=== PATIENT | female | born 1975 | race Caucasian/White ===

== ENCOUNTER 2019-05-01 06:54 | Day surgery (SDC) | payer OTHER, BC ==
[2019-05-01 07:23] VITALS: O2SAT 95
[2019-05-01] MEDS ORDERED: NA CHLORIDE 0.9% 1,000 ML ONE (07:50)
[2019-05-01] MEDS ORDERED: PROPOFOL 200 MG/20 ML VIAL IV ONE ×2 (08:31→08:32)
[2019-05-01 09:28] VITALS: TEMP 97.9
[2019-05-01 09:30] VITALS: BP 114/48
[2019-05-01] MEDS ORDERED: HEPARIN 500 UNIT/5 ML SYR IV ONE (09:31)
== END 2019-05-01 09:33 | disposition home or self-care (01) ==
LOC: OR 06:54
PROVIDERS: ATTEND Internal Medicine Gastroenterology
PROC: 0DB78ZX Excision of Stomach, Pylorus, Via Natural or Artificial Opening Endoscopic, Diagnostic (ICD-10-PCS; 2019-05-01)
PROC: 0DBL8ZX Excision of Transverse Colon, Via Natural or Artificial Opening Endoscopic, Diagnostic (ICD-10-PCS; principal; 2019-05-01 09:15)
PROC: 0DBL8ZX Excision of Transverse Colon, Via Natural or Artificial Opening Endoscopic, Diagnostic (ICD-10-PCS; 2019-05-01 09:15)
DX: D12.3 Benign neoplasm of transverse colon (principal); K64.8 Other hemorrhoids; K64.4 Residual hemorrhoidal skin tags; K29.50 Unspecified chronic gastritis without bleeding; K21.0 Gastro-esophageal reflux disease with esophagitis; K44.9 Diaphragmatic hernia without obstruction or gangrene; Z80.0 Family history of malignant neoplasm of digestive organs; Z98.0 Intestinal bypass and anastomosis status; Z79.84 Long term (current) use of oral hypoglycemic drugs; Z79.899 Other long term (current) drug therapy
CPT/HCPCS: 82962; 88305; 88312; J1642; J2704; J7030

== ENCOUNTER 2022-03-31 06:34 | Day surgery (SDC) | payer BC ==
[2022-03-31] MEDS ORDERED: NA CHLORIDE 0.9% 1,000 ML ONE (06:46)
[2022-03-31] MEDS ORDERED: propofoL 200 MG/20 ML VIAL IV ONE ×3 (08:02→08:19)
[2022-03-31] MEDS ORDERED: LIDOCAINE 1% MPF 5 ML VIAL ONE (08:02)
--- NOTE | 2022-03-31 08:45 | ENDO RPT ---
[address], [address] COLONOSCOPY PROCEDURE REPORT EXAM DATE: 03/31/2022 PATIENT NAME: Chase Mohamud MR #: [id number] BIRTHDATE: 1975 ATTENDING: Anand Crandall Dr STATUS: outpatient FILTER CHANGING TECHNICIAN: Keke Dodd and Elen Villeda RN INDICATIONS: The patient is a 46 yr old Female here for a colonoscopy due to hematochezia and personal history of colon polyps PROCEDURE PERFORMED: Colonoscopy with snare polypectomy MEDICATIONS: Per Anesthesia. ESTIMATED BLOOD LOSS: None CONSENT: The patient understands the risks and benefits of the procedure and understands that these risks include, but are not limited to: sedation, allergic reaction, infection, perforation and/or bleeding. Alternative means of evaluation and treatment include, among others: physical exam, x-rays, and/or surgical intervention. The patient elects to proceed with this endoscopic procedure. DESCRIPTION OF PROCEDURE: During intra-op preparation period all mechanical medical equipment was checked for proper function. Hand hygiene and appropriate measures for infection prevention was taken. Procedure, possible complications, alternatives including, but not limited to possibility of bleeding, perforation, tear, infection, sepsis, need for surgery, need for blood transfusion, were explained to the patient. After the risks, benefits and alternatives of the procedure were thoroughly explained, Informed consent was verified, confirmed and timeout was successfully executed by the treatment team. The patient was placed in the left lateral position. A digital rectal exam was performed and revealed external hemorrhoids and A digital rectal exam was performed and revealed several skin tags. After appropriate level of anesthesia, the scope was passed. The EC-[id number] ([id number]) endoscope was introduced through the anus and advanced to the terminal ileum which was intubated for a short distance. The quality of the prep was good. The instrument was then slowly withdrawn as the colon was fully examined. Scope withdrawal time was 12 minutes. COLON FINDINGS: A polypoid shaped pedunculated polyp measuring 1.8 cm in size was found in the ascending colon. A polypectomy was performed using snare cautery. The resection was complete, the polyp tissue was completely retrieved and sent to histology. The wound at the site was closed by placing hemoclips. One (1) placement was made. There was minimal blood loss from maneuver subsiding by end of procedure. One (1) placement was made. There was minimal blood loss from maneuver subsiding by end of procedure. A smooth sessile polyp measuring 6 mm in size was found in the sigmoid colon. A polypectomy was performed using snare cautery. The resection was complete, the polyp tissue was completely retrieved and sent to histology. Moderate sized internal and external hemorrhoids were found. Retroflexed views revealed medium hemorrhoids. The scope was then completely withdrawn from the patient and the procedure terminated. ADVERSE EVENTS: There were no complications. IMPRESSIONS: 1. 1.8 cm pedunculated polyp in the ascending colon; polypectomy was performed using snare cautery; the wound at the site was closed by placing hemoclip X1 2. 6 mm sessile polyp in the sigmoid colon; polypectomy was performed using snare cautery 3. Moderate sized internal and external hemorrhoids 4. Intubation to terminal ileum 5. Personal history of colon polyps RECOMMENDATIONS: 1. await biopsy results 2. avoid NSAIDS for 2 weeks RECALL: Return in 1 year(s) for Colonoscopy. Anand Crandall Dr eSigned: Anand Crandall Dr 03/31/2022 8:44 AM cc: Amelia Brooek CPT CODES: ICD9 CODES: 1. 455.5 External hemorrhoids with other complication 2. 455.9 Residual hemorrhoidal skin tags 3. 211.3 Benign neoplasm of colon PATIENT NAME: Chase Mohamud MR#: [id number]
[2022-03-31 09:35] VITALS: TEMP 98.1; O2SAT 100
[2022-03-31 09:40] VITALS: BP 129/62
== END 2022-03-31 09:12 | disposition home or self-care (01) ==
LOC: OR 06:34
PROVIDERS: ATTEND Internal Medicine Gastroenterology
PROC: 0DBN8ZX Excision of Sigmoid Colon, Via Natural or Artificial Opening Endoscopic, Diagnostic (ICD-10-PCS; 2022-03-31)
PROC: 0DBK8ZX Excision of Ascending Colon, Via Natural or Artificial Opening Endoscopic, Diagnostic (ICD-10-PCS; principal; 2022-03-31 07:30)
DX: D12.2 Benign neoplasm of ascending colon (principal); D12.5 Benign neoplasm of sigmoid colon; Z86.010 Personal history of colon polyps; Z80.0 Family history of malignant neoplasm of digestive organs; F41.9 Anxiety disorder, unspecified; E11.9 Type 2 diabetes mellitus without complications; E78.5 Hyperlipidemia, unspecified; I10 Essential (primary) hypertension; K64.4 Residual hemorrhoidal skin tags; Z20.822 Contact with and (suspected) exposure to COVID-19
CPT/HCPCS: 82947; 88305; 45385; U0003; J2704 ×3; J7030

== ENCOUNTER 2023-04-13 06:12 | Day surgery (SDC) | payer BC ==
[2023-04-13] MEDS ORDERED: NA CHLORIDE 0.9% 1,000 ML ONE (06:58)
[2023-04-13] MEDS ORDERED: LIDOCAINE 1% MPF 5 ML VIAL ONE (07:25)
[2023-04-13] MEDS ORDERED: GLYCOPYRROLATE 0.2 MG/ML SYR ONE (07:25)
[2023-04-13] MEDS ORDERED: propofoL 200 MG/20 ML VIAL IV ONE (07:25)
[2023-04-13] MEDS ORDERED: MIDAZOLAM HCL 2 MG/2 ML INJ ONE (08:01)
[2023-04-13 08:32] VITALS: TEMP 97.4
[2023-04-13 08:52] VITALS: BP 157/76; O2SAT 96
[2023-04-13] MEDS ORDERED: ONDANSETRON 4 MG/2 ML VIAL ONE (09:17)
== END 2023-04-13 08:56 | disposition home or self-care (01) ==
LOC: OR 06:12
PROVIDERS: ATTEND Internal Medicine Gastroenterology
PROC: 0DBP8ZX Excision of Rectum, Via Natural or Artificial Opening Endoscopic, Diagnostic (ICD-10-PCS; principal; 2023-04-13 07:30)
DX: K92.1 Melena (principal); R10.31 Right lower quadrant pain; R10.32 Left lower quadrant pain; D12.7 Benign neoplasm of rectosigmoid junction; R63.4 Abnormal weight loss; D64.9 Anemia, unspecified; K64.8 Other hemorrhoids; K64.4 Residual hemorrhoidal skin tags; Z83.71 Family history of colonic polyps; Z86.010 Personal history of colon polyps; Z80.0 Family history of malignant neoplasm of digestive organs
CPT/HCPCS: 45380; 82947; 88305; J2704; J2001; J2250; J2405; J7030